=== PATIENT | male | born 1940 | race Hispanic/Latino ===

== ENCOUNTER 2021-08-16 08:45 | Emergency (ER) | payer OTHER ==
[2021-08-16 09:21] LABS: Absolute Lymphocytes (CBC) 1.2 K/uL (0.7-4.9); Basophils % 0.4 % (0-1.3); Hematocrit 36.5 % (39.6-49.0); Lymphocytes % 40.1 % (15.3-44.8); MPV 11.2 fL (7.6-11.3); Protime INR 1.07; RBC Red Blood Cell Count 3.68 M/uL (4.33-5.43)
[2021-08-16 09:37] LABS: ALT/SGPT 26 U/L (12-78); AST/SGOT 31 U/L (15-37); Albumin 4.1 g/dL (3.4-5.0); Alkaline Phosphatase 43 U/L (45-117); BUN Blood Urea Nitrogen 35 mg/dL (7-18); Bicarbonate 26 mmol/L (21-32); Bilirubin Direct 0.2 mg/dL (0-0.2); Bilirubin Total 0.4 mg/dL (0.2-1.0); Glucose Level 96 mg/dL (74-106); NT PRO-BNP 184 pg/mL (<450); Potassium 4.1 mmol/L (3.5-5.1); Protein, Total 7.8 g/dL (6.4-8.2); Sodium Level 141 mmol/L (136-145); Troponin (Emerg Dept Use Only) < 0.02 ng/mL (0.0-0.045)
--- NOTE | 2021-08-16 09:52 | RAD REPORT ---
EXAM DESCRIPTION: Mary Kate Single View08/16/2021 9:30 am CLINICAL HISTORY: Chest pain COMPARISON: 2014 FINDINGS: The lungs appear clear of acute infiltrate. The heart is normal size IMPRESSION: No acute abnormalities displayed
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
--- NOTE | 2021-08-16 11:35 | ER ---
Nurse's Notes [facility] Name: Dorian Cano Jr Age: 81 yrs Sex: Male : 1940 Arrival Date: 08/16/2021 Time: 08:46 Bed 14 Private MD: Sachin Crews R Diagnosis: Chest pain, unspecified Presentation: 08/16 08:47 Chief complaint: Patient states: stabbing chest pain that comes and goes x 3 days ago, aa5 pt states "the pains are becoming more frequent now". Pt also c/o left wrist pain. Pt denies cough, denies nausea/vomiting/diarrhea. 08:47 Coronavirus screen: At this time, the client does not indicate any symptoms associated aa5 with coronavirus-19. Ebola Screen: Patient negative for fever greater than or equal to 101.5 degrees Fahrenheit, and additional compatible Ebola Virus Disease symptoms. Initial Sepsis Screen: Does the patient meet any 2 criteria? No. Patient's initial sepsis screen is negative. Does the patient have a suspected source of infection? No. Patient's initial sepsis screen is negative. Risk Assessment: Do you want to hurt yourself or someone else? Patient reports no desire to harm self or others. Onset of symptoms was July 2021. 08:47 Method Of Arrival: Ambulatory aa5 08:47 Acuity: ANETTE 3 aa5 Triage Assessment: 08:50 General: Appears in no apparent distress. comfortable, Behavior is cooperative, bp appropriate for age, anxious. Pain: Denies pain. EENT: No deficits noted. Neuro: No deficits noted. Cardiovascular: Rhythm is sinus bradycardia Chest pain is denied. Respiratory: No deficits noted. GI: No signs and/or symptoms were reported involving the gastrointestinal system. : No signs and/or symptoms were reported regarding the genitourinary system. Derm: No deficits noted. Musculoskeletal: No deficits noted. Historical: - Allergies: 08:54 No Known Allergies; aa5 - PMHx: 08:54 Hypercholesterolemia; Hypertensive disorder; Glaucoma; aa5 - PSHx: 08:54 Cholecystectomy; Prostate (Laser sx); aa5 - Immunization history:: Client reports receiving the 2nd dose of the Covid vaccine. - Social history:: Smoking status: Patient/guardian denies using tobacco, but has a distant history of tobacco abuse. Screenin:50 Abuse screen: Denies threats or abuse. Denies injuries from another. Nutritional bp screening: No deficits noted. Tuberculosis screening: No symptoms or risk factors identified. Fall Risk None identified. Assessment: 08:50 General: SEE TRIAGE NOTE. bp 11:12 Reassessment: No changes from previously documented assessment. Patient and/or family bp updated on plan of care and expected duration. Pain level reassessed. 11:48 Reassessment: PT D/C HOME AMBULATORY WITH FAMILY, DX WITH NON-CARDIAC CHEST PAIN. bp Vital Signs: 08:47 BP 146 / 52; Pulse 53; Resp 18 S; Temp 98.5(O); Pulse Ox 100% on R/A; Weight 60.78 kg aa5 (R); Height 5 ft. 5 in. (165.10 cm) (R); 09:13 BP 129 / 51; Pulse 44; Resp 20; Pulse Ox 100% ; bp 10:52 BP 117 / 55; Pulse 42; Resp 25; Pulse Ox 99% ; bp 11:48 BP 132 / 60; Pulse 49; Resp 22; Temp 98.3; Pulse Ox 100% ; bp 08:47 Body Mass Index 22.30 (60.78 kg, 165.10 cm) aa5 ED Course: 08:46 Patient arrived in ED. am2 08:46 Sachin Crews MD is Private Physician. am2 08:47 John Dawson, VINCE is Primary Nurse. bp 08:47 Arm band placed on. aa5 08:50 Patient has correct armband on for positive identification. Bed in low position. Call bp light in reach. Side rails up X2. Adult w/ patient. site monitor on. Pulse ox on. NIBP on. 08:50 Patient maintains SpO2 saturation greater than 95% on room air. bp 08:51 Luis Alberto Paula NP is PHCP. pm1 08:51 Peyman Mcdonough MD is Attending Physician. pm1 08:54 Triage completed. aa5 09:10 Inserted saline lock: 20 gauge in right forearm, using aseptic technique. Blood bp collected. 09:30 XRAY Chest (1 view) In Process Unspecified. EDMS 11:48 No provider procedures requiring assistance completed. IV discontinued, intact, bp bleeding controlled, No redness/swelling at site. Pressure dressing applied. Administered Medications: No medications were administered Outcome: 11:34 Discharge ordered by MD. pm1 11:48 Discharged to home ambulatory, with family. bp 11:48 Condition: stable 11:48 Discharge instructions given to patient, Instructed on discharge instructions, follow up and referral plans. Demonstrated understanding of instructions, follow-up care. 11:50 Patient left the ED. bp Signatures: Dispatcher [employer] EDMS Mary Fenton, RN RN aa5 Luis Alberto Paula, DAVID HAND WOODWORKING SANDER pm1 Rebecca Seymour am2 John Dawson, RN RN bp
[2021-08-16 12:01] VITALS: BP 132/60; TEMP 98.3; O2SAT 100
== END 2021-08-16 11:50 | disposition home or self-care (01) ==
LOC: ER 08:45
DX: R07.9 Chest pain, unspecified (principal); I10 Essential (primary) hypertension
CPT/HCPCS: 36415; 71045; 80048; 80076; 83735; 83880; 84484; 85025; 85610; 93005; 99285

== ENCOUNTER 2025-07-23 12:00 | Day surgery (SDC) | payer OTHER ==
[2025-07-19 10:47] LABS: Absolute Lymphocytes (CBC) 1.0 K/uL (0.7-4.9); Hematocrit 32.0 % (39.6-49.0); Hemoglobin 10.8 g/dL (13.6-17.9); MCH 34.1 pg (27.0-35.0); MCHC 33.9 g/dL (32.0-36.0); MCV 100.7 fL (80-100); MPV 10.5 fL (7.6-11.3); Nucleated RBC Absolute Count 0.0 (0-0); Nucleated Red Blood Cells % 0.2 % (0-0); RBC Red Blood Cell Count 3.18 M/uL (4.33-5.43); White Blood Count 2.60 thou/uL (4.3-10.9)
[2025-07-19 10:55] LABS: PT Prothrombin Time 13.0 SECONDS (10-13.0); PTT, Activated Partial Thromb 33.6 SECONDS (27.2-37.4); Protime INR 1.16
[2025-07-19 11:00] LABS: Anion Gap 5.9 mEq/L (5.0-15.0); BUN Blood Urea Nitrogen 29.0 mg/dL (7-18); Glucose Level 106.0 mg/dL (74-106); Potassium 3.9 mEq/L (3.5-5.1)
--- NOTE | 2025-07-19 12:10 | RAD REPORT ---
EXAMINATION: TWO VIEW CHEST XR CLINICAL INDICATION: Male, 85 years old. Hypertension. Pre-op pending carotid angiogram TECHNIQUE: 2 view radiographs of the chest were performed. COMPARISON: 08/16/2021 FINDINGS: The lungs are well inflated and clear. No pneumothorax or sizable effusion. The heart is normal in si ze. Mediastinal contours are unremarkable. IMPRESSION: No acute or significant abnormalities.
[2025-07-23] MEDS ORDERED: NA CHLORIDE 0.9% 500 ML ONE (12:06)
[2025-07-23] MEDS ORDERED: LIDOCAINE 1% 20 ML MDV ONE (12:21)
[2025-07-23] MEDS ORDERED: HEPA 1000U/500MLS 2,000 UNIT/1,000 ML BAG IV ONE (12:21)
[2025-07-23] MEDS ORDERED: MIDAZOLAM HCL 2 MG/2 ML INJ ONE (12:44)
[2025-07-23] MEDS ORDERED: FENTANYL CITR 100 MCG/2 ML ONE (12:44)
--- NOTE | 2025-07-23 15:15 | OP ---
Date of Procedure: 07/23/2025 Surgeon: BART CUEVAS Procedure Performed: Bilateral selective carotid angiogram. Indication: Carotid stenosis. Access: Right common femoral artery 4-Bermudian, closed with Mynx closure device. Complications: None. Bleeding: Less than 50 mL. Total Sedation Time: 45 minutes, used fentanyl and Versed. Description Of Procedure: After risks, benefits, and alternatives were explained, the patient agreed to procedure and signed informed consent. [facility] prepped and draped in sterile fashion. Then, I accessed right common femoral artery using mi cropuncture kit, ultrasound guidance, and fluoroscopy. Placed 5-Bermudian [place] sheath and took a 4- [place]ian 3DRC catheter, engaged the right common carotid, took standard views and then in the left comm on carotid, took standard views, removed the catheter and the sheath and 5-Bermudian Mynx closure device was used for closure with good hemostasis. Findings: 1. Right common carotid is normal and at the bulb and extending into the internal carotid artery on t he right is heavy calcified stenosis, very hazy, even though the overall lumen does not seem to be na rrowed, but the contrast is going through a channel about 20% stenosis, probably around 80% on the ri ght side. 2. Left common carotid is normal. Left internal carotid has 40% to 50% stenosis. Conclusion: Severe right internal carotid artery stenosis with moderate disease in the left. Recommendation: Endarterectomy. /MODL Voice ID: [id number] Report ID: [id number]
[2025-07-23 15:29] VITALS: BP 121/40; O2SAT 98
== END 2025-07-23 15:32 | disposition home or self-care (01) ==
LOC: CCL 12:00
PROVIDERS: ATTEND Internal Medicine
DX: I65.23 Occlusion and stenosis of bilateral carotid arteries (principal); I35.1 Nonrheumatic aortic (valve) insufficiency; R00.1 Bradycardia, unspecified; I10 Essential (primary) hypertension; E78.5 Hyperlipidemia, unspecified; F17.210 Nicotine dependence, cigarettes, uncomplicated; Z79.899 Other long term (current) drug therapy; Z82.49 Family history of ischemic heart disease and other diseases of the circulatory system
CPT/HCPCS: 93005; 85025; 80048; 36415; 85610; 85730; 71046; 36222 ×2; 76937; C1893; J2003; J2250; J3010; J1644; J7040; C1760; 99152; 99153